=== PATIENT | male | born 1995 | race Caucasian/White ===

== ENCOUNTER 2017-06-26 10:06 | Emergency (ER) | payer OTHER ==
[~2017-06-26] VITALS: Ht 175.3 cm; Wt 71.0 kg
[~2017-06-26 10:06] MED LIST: LEVE500S PO
[2017-06-26 10:08] VITALS: BP 122/60; PULSE 79; RESP 16; TEMP 98.1
--- NOTE | 2017-06-26 10:24 | PD ---
HPI Chief Complaint: Musculoskeletal Complaint Time Seen by Provider: 10:21 Travel History International Travel<30 days: No Contact w/Intl Traveler<30days: No Traveled to known affect area: No History of Present Illness HPI Patient presents with complaints of right knee and ankle pain since yesterday. States he blew them out while wrestling. Unable to bear weight. Attempting ice and elevation. Motrin or Tylenol for pain. 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) Reproductive: Yes Respiratory: No Immunizations Current: Yes Migraines: No Seizures: Yes Influenza Vaccination: No Past Surgical History Surgical History: No Previous Surgery Abdominal Surgery: No Cardiac Surgery: Yes (CARDIAC CATH (NOVEMBER 2012)) Ear Surgery: No Endocrine Surgery: No Eye Surgery: No Genitourinary Surgery: Yes (ENLARGED OPENING TO PENIS AT 4 YRS OF AGE) Oral Surgery: Yes (OSTEOTOMY 04/13/16) Thoracic Surgery: No Social History Alcohol Use: No Tobacco Use: No Substance Use: No Allergies-Medications (Allergen,Severity, Reaction): Coded Allergies: penicillin G (Unverified Allergy, Severe, hives, 06/26/17) Reported Meds & Prescriptions Reported Meds & Active Scripts Active Reported Keppra Liq (Levetiracetam) 500 Mg/5 Ml Soln 500 Mg PO BID Review of Systems General / Constitutional: No: Fever Eyes: No: Visual changes HENT: No: Headaches Cardiovascular: No: Chest Pain or Discomfort Respiratory: No: Shortness of Breath Gastrointestinal: No: Abdominal Pain Genitourinary: No: Dysuria Musculoskeletal: No: Pain Skin: No Rash Neurologic: No: Weakness Psychiatric: No: Depression Endocrine: No: Polydipsia Hematologic/Lymphatic: No: Easy Bruising Physical Exam Narrative GENERAL: Well-nourished, well-developed patient. SKIN: Focused skin assessment warm/dry. HEAD: Normocephalic. EYES: No scleral icterus. No injection or drainage. NECK: Supple, trachea midline. No JVD or lymphadenopathy. CARDIOVASCULAR: Regular rate and rhythm without murmurs, gallops, or rubs. RESPIRATORY: Breath sounds equal bilaterally. No accessory muscle use. GASTROINTESTINAL: Abdomen soft, non-tender, nondistended. MUSCULOSKELETAL: No cyanosis, or edema. BACK: Nontender without obvious deformity. No CVA tenderness. Examination the right ankle reveals no ecchymosis erythema or edema, pain on flexion extension Examination of the right knee reveals no ecchymosis erythema or edema, positive patellar pain, positive medial joint line tenderness without lateral joint line tenderness, pain on flexion extension Data Data Last Documented VS Vital Signs Date Time Temp Pulse Resp B/P (MAP) Pulse Ox O2 Delivery O2 Flow Rate FiO2 06/26/17 10:08 98.1 79 16 122/60 (80) Orders Orders Knee, Ltd (1 Or 2vws) (06/26/17 ) Ankle, Limited (Ap&Lat) (06/26/17 ) Splint Or Brace Apply/Monitor (06/26/17 11:28) [facility] Medical Decision Making Medical Screen Exam Complete: Yes Emergency Medical Condition: Yes Differential Diagnosis Right knee sprain, right knee fracture, right ankle sprain, right ankle fracture Narrative Course Assessment and plan discussed with patient and mother at bedside. Films of the right knee and right ankle are unremarkable. Diagnosis Primary Impression: Strain of right knee Qualified Codes: S86.911A - Strain of unspecified muscle(s) and tendon(s) at lower leg level, right leg, initial encounter Additional Impression: Strain of right ankle Qualified Codes: S96.911A - Strain of unspecified muscle and tendon at ankle and foot level, right foot, initial encounter Patient Instructions: General Instructions Additional Instructions: Motrin or Tylenol for pain encouraged to continue ice and elevation, right knee immobilizer and ankle stirrup for comfort. Continue with crutches. Follow up with PCP. Return him or trauma to the onset of new symptoms. Please provide work note. Med/Other Pt SpecificInfo: No Meds Exist/No RX given Disposition: 01 DISCHARGE HOME Condition: Lawson Jeff MD Jun 26, 2017 10:24
--- NOTE | 2017-06-26 11:14 | RADRPT ---
EXAM DATE/TIME: 06/26/2017 10:32 [facility] COMPARISON: No previous studies available for comparison. INDICATIONS : Right knee pain from wrestling. MEDICAL HISTORY : None. SURGICAL HISTORY : None. ENCOUNTER: Initial ACUITY: 1 day PAIN SCORE: 5/10 LOCATION: Right medial knee FINDINGS: Two view examination of the right knee demonstrates no evidence of fracture or dislocation. Bony min eralization is normal. The suprapatellar soft tissues have a normal configuration. CONCLUSION: No acute disease. Dale Reeder MD on June 26, 2017 at 11:13 Board Certified Radiologist. This report was verified electronically.
--- NOTE | 2017-06-26 11:23 | RADRPT ---
EXAM DATE/TIME: 06/26/2017 10:43 [facility] COMPARISON: No previous studies available for comparison. INDICATIONS : Right ankle pain from wrestling. MEDICAL HISTORY : None. SURGICAL HISTORY : None. ENCOUNTER: Initial ACUITY: 1 day PAIN SCORE: 5/10 LOCATION: Right medial ankle FINDINGS: Two view examination was performed of the right ankle. The bony structures are in normal alignment. No evidence of fracture, dislocation, or soft tissue swelling. There is a small 0.7 cm peripherally calcified lesion in the distal lateral tibial shaft with a narrow zone of transition which is felt t o represent a benign lesion such as a nonossifying fibroma. No radiopaque foreign bodies are seen. Bony mineralization is normal. CONCLUSION: No acute disease. Dale Reeder MD on June 26, 2017 at 11:19 Board Certified Radiologist. This report was verified electronically.
== END 2017-06-26 11:48 | disposition home or self-care (01) ==
LOC: PHEFT 10:06
DX: S96.911A Strain of unspecified muscle and tendon at ankle and foot level, right foot, initial encounter (principal); S86.911A Strain of unspecified muscle(s) and tendon(s) at lower leg level, right leg, initial encounter; F90.9 Attention-deficit hyperactivity disorder, unspecified type; F84.5 Asperger's syndrome; R56.9 Unspecified convulsions; Z88.0 Allergy status to penicillin; Y93.72 Activity, wrestling
CPT/HCPCS: 73560; 73600; 99283; E0113; L1830; L1906